=== PATIENT | female | born 1965 | race Caucasian/White ===

== ENCOUNTER → 2020-05-06 | Outpatient (CLI) | payer BC ==
[~2020-05-06] MED LIST: BUTA1CAP31 PO; CLON0.1T22 PO; CLON1TAB11 PO; CODE1CAP9 PO; DESI50TA PO; HYDR-826 PO; LIDO700A5 TP; SUMA100T3 PO; TIZA2CAP PO; TIZA4CAP PO; TYLENOL 3 PO; ZOLP10TA PO
== END | disposition home or self-care (01) ==
LOC: LAB 16:08
PROVIDERS: ATTEND Family Medicine
DX: R94.5 Abnormal results of liver function studies (principal); E83.19 Other disorders of iron metabolism; R63.5 Abnormal weight gain
CPT/HCPCS: 36415; 82728; 83516; 83540; 83550; 84443; 86038; 86225; 86235; 86803

== ENCOUNTER 2020-10-12 16:07 | Outpatient (CLI) | payer BC | END 2020-10-12 23:59 | disposition home or self-care (01) | LOC: LAB 16:07 | PROVIDERS: ATTEND Internal Medicine | DX: R74.8 Abnormal levels of other serum enzymes (principal) | CPT/HCPCS: 36415; 83516; 86038; 86225; 86235 ==